=== PATIENT | female | born 1955 | race American Indian/Alaskan Native ===

== ENCOUNTER 2017-12-14 09:43 | Emergency (ER) | payer SELFPAY ==
[2017-12-14 09:56] VITALS: BP 151/87
[2017-12-14] MEDS ORDERED: HCTZ PO ONE (10:44)
[2017-12-14] MEDS ORDERED: COZAAR PO ONE (10:44)
--- NOTE | 2017-12-14 10:47 | Emergency Department Report ---
ED Shortness of Breath HPI - General Chief Complaint: Dyspnea/Respdistress Stated Complaint: SAIGE Time Seen by Provider: 12/14/17 10:36 Source: patient Mode of arrival: Ambulatory Limitations: No Limitations - History of Present Illness Initial Comments: 61-year-old female past medical history hypertension, breast cancer history of mastectomies history of chemotherapy and radiation remission as of 2012 presents with complaint of one week of intermittent shortness of breath at rest. Patient denies any associated fever chills nausea vomiting palpitations, adamantly denies any chest pain or pleuritic chest pain. Denies being a smoker. Patient is awake alert and oriented 3 speaking in full sentences. No trismus noted drooling and no audible wheezing or stridor. Patient states that she has had a pneumonia in the past and this feels slightly similar to that. Denies any lower extremity swelling. Denies any calf pain. Denies any previous history of PE or DVT. No recent travel reported, no recent surgeries. Patient denies alcohol or drug use. Denies being an asthmatic. Denies smoking. Denies any orthopnea or paroxysmal nocturnal dyspnea. Denies any cough. MD Complaint: shortness of breath Onset/Timin -: week(s) Worsens With: nothing Associated Symptoms: denies other symptoms Treatments Prior to Arrival: none - Related Data Previous Rx's Medication Instructions Recorded Last Taken Type Losartan/Hydrochlorothiazide 1 each PO QDAY #30 tablet 12/14/17 Unknown Rx [Losartan-Hctz 50-12.5 mg Tab] Allergies Allergy/AdvReac Type Severity Reaction Status Date / Time No Known Allergies Allergy Unverified 12/14/17 09:52 ED Review of Systems ROS: Stated complaint: SAIGE Other details as noted in HPI Constitutional: denies: chills, fever Eyes: denies: eye pain, eye discharge, vision change ENT: denies: ear pain, throat pain Respiratory: shortness of breath. denies: cough, wheezing Cardiovascular: denies: chest pain, palpitations Endocrine: no symptoms reported Gastrointestinal: denies: abdominal pain, nausea, diarrhea Genitourinary: denies: urgency, dysuria, discharge Musculoskeletal: denies: back pain, joint swelling, arthralgia Skin: denies: rash, lesions Neurological: denies: headache, weakness, paresthesias Psychiatric: denies: anxiety, depression Hematological/Lymphatic: denies: easy bleeding, easy bruising ED Past Medical Hx - Past Medical History Previous Medical History?: Yes Hx Hypertension: Yes Hx of Cancer: Yes (breast) Additional medical history: Chemo and radiation for breast cancer - Surgical History Past Surgical History?: Yes Hx Breast Surgery: Yes (Mastectomy, Reconstructive surgery right) - Social History Smoking Status: Never Smoker Substance Use Type: Alcohol, Prescribed - Medications Home Medications: Home Medications Medication Instructions Recorded Confirmed Last Taken Type Losartan/Hydrochlorothiazide 1 each PO QDAY #30 tablet 12/14/17 Unknown Rx [Losartan-Hctz 50-12.5 mg Tab] ED Physical Exam - General Limitations: No Limitations General appearance: alert, in no apparent distress - Head Head exam: Present: atraumatic, normocephalic - Eye Eye exam: Present: normal appearance, PERRL, EOMI - ENT ENT exam: Present: mucous membranes moist - Neck Neck exam: Present: normal inspection - Respiratory Respiratory exam: Present: normal lung sounds bilaterally (lungs clear to auscultation bilaterally. No rhonchi no wheezing.). Absent: respiratory distress - Cardiovascular Cardiovascular Exam: Present: regular rate, normal rhythm. Absent: systolic murmur, diastolic murmur, rubs, gallop - GI/Abdominal GI/Abdominal exam: Present: soft, normal bowel sounds - Extremities Exam Extremities exam: Present: normal inspection, other (NO appreciable LE swelling b/l) - Back Exam Back exam: Present: normal inspection - Neurological Exam Neurological exam: Present: alert, oriented X3, CN II-XII intact, normal gait - Psychiatric Psychiatric exam: Present: normal affect, normal mood - Skin Skin exam: Present: warm, dry, intact, normal color. Absent: rash ED Course Vital Signs 12/14/17 12/14/17 09:52 10:54 Temperature 97.8 F Pulse Rate 94 H 94 H Respiratory 22 Rate Blood Pressure 151/87 151/87 O2 Sat by Pulse 100 Oximetry ED Medical Decision Making - Lab Data Result diagrams: 12/14/17 10:54 12/14/17 10:54 - Medical Decision Making A/P: New-onset CHF, shortness of breath 1-I inform the patient of her lab work as well as chest x-ray results in the context of her clinical symptoms. I explained to her what CHF is and the need for further medical management and workup. At this time patient states she does not wish to be admitted to the hospital. I explained to her that CHF if worsened or severe can be life-threatening. Patient stated that she acknowledged this but again reiterates that she cannot stay in the hospital for personal reasons at this time. Patient signed out from ED AGAINST MEDICAL ADVICE. AMA form and discussion witnessed by staff midwife/apprenticeship director 2-refill on patient's hypertension medicine 3-I referred patient to primary care and cardiology 4-advised patient to return to the ED as soon as possible for worsened shortness of breath chest pain palpitations or peripheral edema, abdominal edema , nocturnal dyspnea, pleuritic chest pain. Patient stated she understood my instructions Critical care attestation.: If time is entered above; I have spent that time in minutes in the direct care of this critically ill patient, excluding procedure time. ED Disposition Clinical Impression: Medication refill, Left against medical advice, Shortness of breath Disposition: LEFT AGAINST MED ADVICE Is pt being admited?: No Does the pt Need Aspirin: No Condition: Stable Instructions: Against Medical Advice (ED), Pulmonary Edema (ED), Heart Failure (ED) Prescriptions: Losartan/Hydrochlorothiazide [Losartan-Hctz 50-12.5 mg Tab] 1 each PO QDAY #30 tablet Referrals: [facility] [Provider Group] - 3-5 Days [facility] [Outside] - 3-5 Days PRIMARY MD RAFI [Primary Care Provider] - 3-5 Days [facility] [Provider Group] - 3-5 Days BRIGIDO LOCO MD [Staff Physician] - 3-5 Days ELIAN VERDIN JR, MD [Staff Physician] - 3-5 Days Forms: AMA Form Time of Disposition: 12:50
--- NOTE | 2017-12-14 11:11 | XRay Report ---
Chest 2 views: History: Shortness of breath. Findings: Normal cardiomediastinal silhouette. Trachea is midline. Mild pulmonary venous congestion predominantly lower lobes. Minimal right pleural effusion. Impression: Probable early CHF.
[2017-12-14 11:44] LABS: Basophils # (Auto) 0.1 K/mm3 (0.0-0.1); Basophils % (Auto) 1.1 % (0.0-1.8); Eosinophils # (Auto) 0.3 K/mm3 (0.0-0.4); Eosinophils % (Auto) 3.1 % (0.0-4.3); Hematocrit 39.9 % (30.3-42.9); Hemoglobin 13.1 gm/dl (10.1-14.3); Lymphocytes # (Auto) 3.1 K/mm3 (1.2-5.4); Lymphocytes % (Auto) 33.5 % (13.4-35.0); Mean Corpuscular HGB Conc 33 % (30-34); Mean Corpuscular Hemoglobin 29 pg (28-32); Mean Corpuscular Volume 87 fl (79-97); Monocytes # (Auto) 0.9 K/mm3 (0.0-0.8); Monocytes % (Auto) 10.2 % (0.0-7.3); Platelet Count 271 K/mm3 (140-440); Red Blood Count 4.57 M/mm3 (3.65-5.03); Red Cell Distribution Width 14.2 % (13.2-15.2)
[2017-12-14 11:58] LABS: BUN/Creatinine Ratio 19; Blood Urea Nitrogen 13 mg/dL (7-17); Calcium 9.2 mg/dL (8.4-10.2); Hemolysis Index 154
== END 2017-12-14 12:58 | disposition left against medical advice (07) ==
LOC: ED 09:43
DX: R06.02 Shortness of breath (principal); Z76.0 Encounter for issue of repeat prescription; Z85.3 Personal history of malignant neoplasm of breast; Z90.10 Acquired absence of unspecified breast and nipple
CPT/HCPCS: 36415; 71046; 80048; 83880; 85025; 85379; 93005; 93010

== ENCOUNTER 2018-09-13 14:22 | Emergency (ER) | payer SELFPAY ==
[2018-09-13 14:45] VITALS: BP 136/82
--- NOTE | 2018-09-13 15:52 | Emergency Department Report ---
ED General Adult HPI - General Chief complaint: Extremity Problem,Nontraumatic Stated complaint: RT HAND AND ARM SWELLING Time Seen by Provider: 09/13/18 15:42 Source: patient Mode of arrival: Ambulatory Limitations: No Limitations - History of Present Illness Initial comments: Mrs. Smyth is a very pleasant 63-year-old female who presents with right upper extremity swelling. She has swelling from the elbow to the hand since one week before Pooja time. She denies trauma. She denies pain. She denies redness. However the swelling has been intermittent but more persistent over the last week. She was evaluated by physician at [facility] [place]. She was transferred to the ER to rule out DVT. In 1993 she underwent lymph node resection during breast cancer treatment. She did not has swelling or lymphedema any time prior to this occurrence. -: Gradual, week(s) (6) Location: right, upper extremity Radiation: non-radiation Consistency: intermittent Improves with: movement Worsens with: immobilization Associated Symptoms: denies other symptoms. denies: chest pain, shortness of breath - Related Data Previous Rx's Medication Instructions Recorded Last Taken Type Losartan/Hydrochlorothiazide 1 each PO QDAY #30 tablet 12/14/17 Unknown Rx [Losartan-Hctz 50-12.5 mg Tab] Allergies Allergy/AdvReac Type Severity Reaction Status Date / Time No Known Allergies Allergy Unverified 12/14/17 09:52 ED Review of Systems ROS: Stated complaint: RT HAND AND ARM SWELLING Other details as noted in HPI Comment: All other systems reviewed and negative Constitutional: denies: fever, malaise Respiratory: denies: cough ED Past Medical Hx - Past Medical History Previous Medical History?: Yes Hx Hypertension: Yes Additional medical history: Chemo and radiation for breast cancer 1993, right. Left breast CA 2012 - Surgical History Past Surgical History?: Yes Hx Breast Surgery: Yes (Mastectomy, Reconstructive surgery right) - Social History Smoking Status: Never Smoker Substance Use Type: None - Medications Home Medications: Home Medications Medication Instructions Recorded Confirmed Last Taken Type Losartan/Hydrochlorothiazide 1 each PO QDAY #30 tablet 12/14/17 Unknown Rx [Losartan-Hctz 50-12.5 mg Tab] ED Physical Exam - General Limitations: No Limitations General appearance: alert, in no apparent distress - Head Head exam: Present: atraumatic, normocephalic - Eye Eye exam: Present: normal appearance - ENT ENT exam: Present: mucous membranes moist - Neck Neck exam: Present: normal inspection. Absent: tenderness, meningismus - Respiratory Respiratory exam: Present: normal lung sounds bilaterally. Absent: respiratory distress, rales, rhonchi - Cardiovascular Cardiovascular Exam: Present: regular rate, normal rhythm, normal heart sounds. Absent: systolic murmur, diastolic murmur, rubs, gallop - GI/Abdominal GI/Abdominal exam: Present: soft, normal bowel sounds. Absent: distended, tenderness, guarding, rebound - Extremities Exam Extremities exam: Present: other (right forearm slightly larger than left forearm no erythema and no tenderness 2+ radial pulse intact on the right) - Back Exam Back exam: Present: normal inspection - Neurological Exam Neurological exam: Present: alert, oriented X3 - Psychiatric Psychiatric exam: Present: normal affect, normal mood - Skin Skin exam: Present: warm, dry, intact, normal color. Absent: rash ED Course Vital Signs 09/13/18 14:42 Temperature 98.6 F Pulse Rate 84 Respiratory 16 Rate Blood Pressure 136/82 O2 Sat by Pulse 100 Oximetry ED Medical Decision Making - Medical Decision Making Mrs. Smyth presents with signs and symptoms of lymphedema attributed to lymph node resection over 25 years ago. I have informed Mrs. Smyth that lymphedema may develop many years after lymph node resection. Luckily, her symptoms are mild at this time. Provided education regarding potential future treatment possibilities. Referred to [facility] for follow-up. RUE Duplex US negative for DVT. Critical care attestation.: If time is entered above; I have spent that time in minutes in the direct care of this critically ill patient, excluding procedure time. ED Disposition Clinical Impression: Lymphedema of right upper extremity Disposition: DC-01 TO HOME OR SELFCARE Is pt being admited?: No Does the pt Need Aspirin: No Condition: Stable Instructions: Lymphedema (ED) Referrals: [facility] [Outside] - as needed
--- NOTE | 2018-09-13 17:34 | Vascular Lab Report ---
FINAL REPORT EXAM: VL VENOUS DUPLEX UE RT HISTORY: right arm swelling hx of LN resection history of breast cancer TECHNIQUE: Longitudinal and transverse grayscale, color, and Doppler sonographic images were perform ed of the right upper extremity, left internal jugular vein and subclavian vein Comparison: None FINDINGS: The venous system is anechoic and fully compressible at all levels. Normal respiratory variability and augmentation. On the right, the internal jugular vein, subclavian vein, axillary vein, brachial vein, basilic vein, radial and ulnar veins were assessed, the cephalic vein was also assessed. On the left, the internal jugular vein and subclavian vein were assessed. IMPRESSION: No evidence for acute deep venous thrombosis right upper extremity from the neck to the forearm. The left internal jugular vein was also noted to be patent without thrombus.
== END 2018-09-13 17:59 | disposition home or self-care (01) ==
LOC: ED 14:22
DX: R59.1 Generalized enlarged lymph nodes (principal); I10 Essential (primary) hypertension; Z98.890 Other specified postprocedural states